=== PATIENT | female | born 1960 | race Caucasian/White ===

== ENCOUNTER → 2017-10-24 10:07 | Outpatient (CLI) | payer BC, SELFPAY ==
--- NOTE | 2017-10-24 10:10 | RAD_ITS ---
STUDY: X-RAY CHEST REASON FOR EXAM: Female, 57 years old. Three-week history of cough and illness. TECHNIQUE: PA and lateral views of the chest. COMPARISON: None. FINDINGS: The lungs are clear and expanded. Scattered calcified granulomas. There is no demonstrated pleural abnormality. Normal size heart. Normal mediastinum and nancy. Normal visualized pulmonary arteries. There is atherosclerotic tortuosity of the aortic arch and descending thoracic aorta. There is demineralization of the osseous structures. Normal visualized ribs, clavicles, and shoulders. There is no demonstrated abnormality of the visualized soft tissue structures of the upper abdomen. RAD/Chest PA and Lateral IMPRESSION: Normal x-ray examination of the chest. Electronically Signed: Yan Mott MD at 10:45 EDT Tel [phone], Service support ,
== END ==
PROVIDERS: Family Provider Family Medicine; PCP Family Medicine; Visit Provider Physician Assistant
DX: R05 Cough (principal)
CPT/HCPCS: 71046

== ENCOUNTER 2022-06-23 12:35 | Emergency (ER) | payer OTHER, SELFPAY ==
[2022-06-23 12:36] VITALS: BP 143/88; PULSE 69; RESP 18; TEMP 36.6; O2SAT 100; BMI 38.4
[2022-06-23 13:27] VITALS: PULSE 69; RESP 14; O2SAT 100
--- NOTE | 2022-06-23 13:44 | VDLE_ITS ---
Reason For Study: Pain Procedure LEFT This is a venous duplex using B-mode, color GSV is normal. flow and spectral Doppler. CFV is compressible, spontaneous, phasic, Exam performed portable in ED. competent, and demonstrates normal A preliminary report was called and/or faxed augmentation. to [facility]. FV is compressible, spontaneous, phasic, competent and demonstrates normal augmentation. POP V is compressible, spontaneous, phasic, competent and demonstrates normal augmentation. T/P Trunk is compressible. PTV is compressible. LT PerV is compressible. VL/Venous Duplex US, Unilateral Interpretation Summary Deep veins of the left lower extremity are patent and compressible segmentally. There is no evidence of left lower extremity deep vein thrombosis. The left great saphenous vein rogelio ears patent and compressible segmentally. Ordering Physician: David Irvin Performed By: Tran Raza RVT
--- NOTE | 2022-06-23 13:46 | EKG12_ITS ---
Test Reason : Blood Pressure : / mmHG Vent. Rate : 061 BPM Atrial Rate : 061 BPM P-R Int : 158 ms QRS Dur : 068 ms QT Int : 466 ms P-R-T Axes : 053 010 029 degrees QTc Int : 469 ms Normal sinus rhythm Low voltage QRS Borderline ECG Confirmed by RICO ROWLEY, GIL ([id number]), graphic editor [email or web address] UP ([id number]) on 06/29/2022 9:29:05 A M Referred By: Confirmed By:RAJANI GÓMEZ MD
--- NOTE | 2022-06-23 13:49 | NURSING ---
NO OLD EKGS
[2022-06-23 14:33] LABS: Absolute Lymphocyte Count 2.13 X10^3/uL (0.83-4.51); Absolute Neutrophil Count 5.3 X10^3/uL (2.0-7.7); Basophil# 0.09 X10^3/uL; Basophil% 1.1 % (0-1); Eosinophil# 0.46 X10^3/uL; Eosinophils% 5.4 % (0-5); Hematocrit 41.9 % (37-47); Lymphocyte # 2.13 X10^3/ul (0.83-4.51); Lymphocyte % 25.1 % (19-41); Mean Corp Hgb Conc 33.4 g/dL (32-36); Mean Corpuscular Hgb 30.4 pg (27.0-32.0); Mean Corpuscular Volume 91.1 fL (81-99); Mean Platelet Vol. 11.2 fl (6.2-12.0); Monocyte# 0.53 X10^3/uL; Monocyte% 6.2 % (0-10); NRBC Flagged by Analyzer 0 % (0-5); Neutrophil # 5.26 X10^3/uL (2.7-7.7); Platelet Count 267 K/mm3 (150-450); RBC Distribution Width CV 13.2 % (11.6-14.6); RBC Distribution Width SD 43.6 fl (35.1-43.9); White Blood Count 8.5 K/mm3 (4.4-11.0)
[2022-06-23 14:49] LABS: Anion Gap 3 (5-15); BUN 11 mg/dL (7-18); BUN/Creat Ratio 13.4 RATIO (10-20); Calcium,Total 9.4 mg/dL (8.5-10.1); Chloride 110 mmol/L (98-107); Creatinine, Serum 0.82 mg/dL (0.55-1.02); EST Glomerular Filtration Rate 75 mL/min (>60); Est Glom Filt Rate - Afr Amer 91 mL/min (>60); Estimated Creatinine Clearance 69.15 ml/min; Glucose 92 mg/dL (74-106); Potassium 3.7 mmol/L (3.5-5.1); Sodium Level 143 mmol/L (136-145); Troponin-I HS 4 pg/mL (3.0-54.0)
[2022-06-23 14:52] VITALS: BP 138/68; PULSE 103; RESP 28; O2SAT 95
--- NOTE | 2022-06-23 15:02 | CT_ITS ---
STUDY: CTA CHEST REASON FOR EXAM: Female, 61 years old. Pulmonary embolism RADIATION DOSAGE (If Supplied By Facility): CTDIvol = ( 13.70 ) mGy, DLP = ( 557.55 ) mGycm TECHNIQUE: The examination was performed with the intravenous administration of IV 100mL Isovue-370. Post-processing of the angiographic images was performed, with multiplanar reformation and 3D reconstruction. Individualized dose optimization techniques were used for this CT. COMPARISON: None. FINDINGS: Normal enhancement of the main pulmonary artery and right and left pulmonary arteries. Normal enhancement of the bilateral peripheral pulmonary arteries. There is no demonstrated pulmonary embolism. Normal thoracic aorta and visualized great vessels. There is no demonstrated aortic dissection. Normal heart and pericardium. Normal mediastinum. Normal hilar regions. Normal visualized trachea and bronchi. The lungs are well expanded. Normal pulmonary parenchyma. Normal pleura. Normal chest wall structures. Normal osseous structures. Normal visualized upper abdomen. CT/CTA Chest W/WO Contrast IMPRESSION: Normal CTA chest examination, without a demonstrated pulmonary embolism or arterial dissection. Electronically Signed: Yan Mott MD at 15:24 EST ,
--- NOTE | 2022-06-23 15:36 | EX.ED.DYSGE1 ---
HPI History of Present Illness Chief Complaint: Lower Extremity Injury Informant: patient Narrative Narrative: 61-year-old female presenting to the emergency department out of concern for pulmonary embolism. Patient is a diabetic who recently was started on metformin. She has a prior history of DVT PE. She is no longer on blood thinners. There is no known clotting disorder. It was felt that the initial PE was a provoked event. She states that she has now developed pain in the left calf as well as pain in the right shoulder. Previously she had pain in the right calf and the left shoulder and was diagnosed with bilateral pulmonary embolisms. She denies any recent surgeries or hormonal use. She denies any chest pain or dyspnea. She went to the urgent care and was referred to the emergency [facility] Medical History Fatigue Pulmonary embolism SOB (shortness of breath) Thyroid disease Home Medications cholecalciferol (vitamin D3) 25 mcg (1,000 unit) capsule 1,000 unit PO ONCE 10/24/17 [History Last Taken Unknown] esomeprazole magnesium 20 mg capsule,delayed release (Nexium) 20 mg PO QDAY 10/24/17 [History Last Taken Unknown] vitamin B12 0.5 mg-folic acid 1 mg tablet 1 tab PO QDAY 10/24/17 [History Last Taken Unknown] calcium carbonate 600 mg calcium (1,500 mg) tablet 600 mg PO DAILY 06/23/22 [History Last Taken Unknown] metformin 500 mg tablet,extended release 24 hr 500 mg PO BID 06/23/22 [History Last Taken Unknown] selenium 200 mcg tablet 200 mcg PO DAILY 06/23/22 [History Last Taken Unknown] zinc 50 mg tablet 50 mg PO DAILY 06/23/22 [History Last Taken Unknown] Allergy/AdvReac Type Severity Reaction Status Date / Time No Known Allergies Allergy Verified 06/23/22 12:35 Family History Father Colon cancer Heart disease Diabetes Mother Heart disease Diabetes Surgical History H/O breast augmentation History of appendectomy History of cholecystectomy History of hysterectomy Hx of section Social History Smoking Status: Never smoker alcohol intake: never ROS ROS ED Constitutional Constitutional ED: Denies chills, fever(s) or weight loss Eyes Eyes: Denies change in vision or diplopia ENT ENT ED: Denies ear pain, rhinorrhea or sore throat Cardiovascular Cardiovascular: Denies chest pain, orthopnea, palpitations or racing heartbeat Respiratory/Chest Respiratory/Chest: Denies cough, dyspnea or orthopnea Gastrointestinal Gastrointestinal: Denies abdominal pain, diarrhea, nausea or vomiting Genitourinary Genitourinary ED: Denies dysuria, hematuria or urinary frequency Musculoskeletal Musculoskeletal: Reports other Details: See history of present illness ; Denies arthralgias or myalgias Integumentary Denies abscess or rash Neurologic Neurologic: Denies headache(s) or weakness Psychiatric Psychiatric: Denies anxiety, depression, suicidal ideation or suicidal thoughts Endocrine Endocrinology: Denies polydipsia, polyphagia or polyuria Allergic/Immunologic Allergic/Immunologic ED: Denies mouth swelling, tongue swelling or urticaria EXAM Physical Exam Const Vital Signs: 06/23/22 12:36 06/23/22 13:27 06/23/22 14:52 Temperature 97.8 F Temperature Source Temporal Pulse Rate 69 69 103 H Respiratory Rate 18 14 28 H Blood Pressure 143/88 H 138/68 H Blood Pressure Mean 106 91 Pulse Ox 100 100 95 Oxygen Delivery Method Room Air Room Air Room Air Positive well nourished and well developed General Appearance ED: well developed HEENT Reports normocephalic, head/scalp atraumatic and moist mucous membranes Eyes PERRL and EOMs intact bilaterally Neck no lymphadenopathy, supple and no JVD Resp normal respiratory effort and clear to auscultation bilaterally Cardio regular rate, regular rhythm and no murmurs GI normal to inspection, nondistended, normoactive bowel sounds and non-tender Palpation: soft Back/Spine no CVA tenderness and normal ROM Extremity normal to inspection General Extremety ED: Negative for edema General Extremity: Negative for edema Neuro oriented x3 and CN's II-XII intact bilaterally Sensorium / Orientation: alert Motor Exam: strength 5/5 throughout Psych mental status grossly normal Mood & Affect: Negative for depressed or tearful Skin no rashes or lesions noted and no wounds MDM MDM MDM Narrative Medical decision making narrative: Basic blood work was obtained. Glucose of 92 with normal creatinine. Troponin is normal at 4. EKG is a normal sinus rhythm with no evidence of heart strain. CTA of the chest is negative. Duplex ultrasound of the leg is negative for DVT. At this point I think the patient can be discharged home. Would recommend follow-up as needed return if worsening or concerns Lab Data Attestation: I reviewed the patient's lab results. Labs: Laboratory Results - last 24 hr 06/23/22 06/23/22 14:26 14:26 WBC 8.5 RBC 4.60 Hgb 14.0 Hct 41.9 MCV 91.1 MCH 30.4 MCHC 33.4 RDW Std Deviation 43.6 RDW Coeff of June 13.2 Plt Count 267 MPV 11.2 Immature Gran % (Auto) 0.200 Neut % (Auto) 62.0 Lymph % (Auto) 25.1 [place] % (Auto) 6.2 Eos % (Auto) 5.4 H Baso % (Auto) 1.1 H Absolute Neuts (auto) 5.3 Absolute Lymphs (auto) 2.13 Nucleated RBC % 0 Sodium 143 Potassium 3.7 Chloride 110 H Carbon Dioxide 30.0 Anion Gap 3 L BUN 11 Creatinine 0.82 Estim Creat Clear Calc 69.15 Est GFR (MDRD) Af Amer 91 Est GFR (MDRD) Non-Af 75 BUN/Creatinine Ratio 13.4 Glucose 92 Calcium 9.4 Troponin I High Sens 4 Radiography Diagnostic Testing: Clinical Impression(s) from Imaging Studies Chest CTA 06/23/22 15:02 IMPRESSION: Normal CTA chest examination, without a demonstrated pulmonary embolism or arterial dissection. Electronically Signed: Yan Mott MD at 15:24 EST , EKG Initial EKG: Attestation: I personally reviewed and interpreted this EKG as follows: Comments: Normal sinus rhythm with a ventricular rate of 61 bpm Discharge Plan Triage Chief Complaint: Lower Extremity Injury ED Provider: David Irvin Dx/Rx/DC Orders Clinical Impression: Pain of left calf, Acute shoulder pain Prescriptions: No Action vitamin B12 0.5 mg-folic acid 1 mg tablet 0.5-1 mg tablet 1 tab PO QDAY cholecalciferol (vitamin D3) 1,000 unit capsule 1,000 unit PO ONCE esomeprazole magnesium [Nexium] 20 mg capsule,delayed release(DR/EC) 20 mg PO QDAY metformin 500 mg tablet extended release 24 hr 500 mg PO BID Label Comments: TAKE 1 TABLET BY MOUTH TWICE A DAY selenium 200 mcg Tablet 200 mcg PO DAILY calcium carbonate [Caltrate 600] 600 mg calcium (1,500 mg) Tablet 600 mg PO DAILY zinc 50 mg Tablet 50 mg PO DAILY Primary Care Provider: Koffi Hammer Referrals: Koffi Hammer MD [Primary Care Provider] - As Needed Disposition Disposition: Home, Self Care
[2022-06-23 15:58] VITALS: BP 122/83; PULSE 87; RESP 16; O2SAT 98
== END 2022-06-23 15:58 | disposition home or self-care (01) ==
PROVIDERS: Emergency Provider Emergency Medicine; Visit Provider Emergency Medicine
DX: M79.662 Pain in left lower leg (principal); E11.9 Type 2 diabetes mellitus without complications; M25.511 Pain in right shoulder; Z79.84 Long term (current) use of oral hypoglycemic drugs; Z79.899 Other long term (current) drug therapy; Z86.718 Personal history of other venous thrombosis and embolism; Z86.711 Personal history of pulmonary embolism
CPT/HCPCS: 71275; 80048; 84484; 85025; 93005; 93971; 99285; Q9967; A4216

== ENCOUNTER → 2024-04-04 | Outpatient (CLI) | payer BC, SELFPAY | END | disposition home or self-care (01) | LOC: LAB 12:29 | PROVIDERS: Referring Provider Physician Assistant; Visit Provider Physician Assistant | DX: N39.0 Urinary tract infection, site not specified (principal) | CPT/HCPCS: 87077; 87086; 87088; 87186 ==

== ENCOUNTER → 2025-02-18 | Outpatient (CLI) | payer BC, SELFPAY | END | disposition home or self-care (01) | LOC: LABSPEC 11:00 | PROVIDERS: PCP Family Medicine; Referring Provider Nurse Practitioner Family; Visit Provider Nurse Practitioner Family | DX: R33.9 Retention of urine, unspecified (principal) | CPT/HCPCS: 87077; 87086; 87088; 87186 ==